=== PATIENT | male | born 1960 | race Caucasian/White ===

== ENCOUNTER 2020-07-19 22:16 | Emergency (ER) | payer BC ==
[2020-07-19] MEDS ORDERED: HYDROmorphone 1 MG/ML Syringe IM ONE (22:53)
--- NOTE | 2020-07-19 23:02 | EDM.PDOC ---
ED HPI GENERAL MEDICAL PROBLEM - General Chief Complaint: Lower Extremity Injury/Pain Stated Complaint: PAIN IN LEFT KNEE AFTER SURG YESTURDAY Time Seen by Provider: 07/19/20 22:48 Source of Information: Reports: Patient, Old Records History Limitations: Reports: No Limitations - History of Present Illness INITIAL COMMENTS - FREE TEXT/NARRATIVE: Marvin is a 60-year-old male presenting to the ED for left knee pain. Patient underwent of left knee hemiarthroplasty yesterday at [facility] by Edison Schilling. Patient has been following instructions from orthopedics after numerous phone calls to try to get his pain under control. He has been taking his hydrocodone every 4 hours as prescribed. Has been using ice and heat. He has been elevating it. Despite these measures he has not been able to get his pain under control prompting him to come to the ER tonight. Left Knee Pain Score (Numeric/FACES): 7 - Related Data Allergies Allergy/AdvReac Type Severity Reaction Status Date / Time meclizine Allergy Itching Verified 07/19/20 22:32 Home Meds: Home Meds Acetaminophen/HYDROcodone [Holt 325-10 MG] 1 tab PO Q4H PRN 07/19/20 [History] Aspirin [Aspirin EC] 325 mg PO BID 07/19/20 [History] Pantoprazole Sodium [Protonix] 20 mg PO DAILY 07/19/20 [History] Sennosides/Docusate Sodium [Senna-S 8.6-50 mg Tablet] 2 tab PO BID 07/19/20 [History] hydroCHLOROthiazide [Hydrochlorothiazide] 25 mg PO DAILY 07/19/20 [History] Past Medical History HEENT History: Reports: Impaired Vision, Sinusitis Cardiovascular History: Reports: Hypertension Gastrointestinal History: Reports: Chronic Diarrhea Genitourinary History: Reports: Renal Calculus Musculoskeletal History: Reports: Arthritis - Infectious Disease History Infectious Disease History: Reports: Chicken Pox, Mumps - Past Surgical History GI Surgical History: Reports: Colonoscopy, Hernia Repair/Other Male Surgical History: Reports: Kidney Stone Extraction Musculoskeletal Surgical History: Reports: Knee Replacement Social & Family History - Tobacco Use Tobacco Use Status *Q: Current Every Day Tobacco User Years of Tobacco use: 35 Packs/Tins Daily: 1 - Alcohol Use Date of Last Drink: 07/13/20 - Recreational Drug Use Recreational Drug Use: Yes Drug Use in Last 12 Months: Yes Recreational Drug Type: Reports: Marijuana/Hashish Review of Systems - Review of Systems Review Of Systems: See Below Constitutional: Reports: Diaphoresis (Episodes of diaphoresis when pain increases.) Eyes: Reports: No Symptoms Ears: Reports: No Symptoms Nose: Reports: No Symptoms Mouth/Throat: Reports: No Symptoms Respiratory: Reports: No Symptoms Cardiovascular: Reports: No Symptoms GI/Abdominal: Reports: No Symptoms Genitourinary: Reports: No Symptoms Musculoskeletal: Reports: Joint Pain (Left knee pain radiated up into the hip and down to the ankle.) Skin: Reports: Bruising (Postoperative bruising), Wound (Surgical wound looks clean, dry and intact). Denies: Erythema Neurological: Reports: No Symptoms Psychiatric: Reports: No Symptoms ED EXAM, GENERAL - Physical Exam Exam: See Below Exam Limited By: No Limitations General Appearance: Alert, Anxious, Moderate Distress Eye Exam: Bilateral Eye: EOMI, PERRL Head: Atraumatic, Normocephalic Neck: Normal Inspection, Supple Respiratory/Chest: No Respiratory Distress, Lungs Clear Cardiovascular: Normal Peripheral Pulses, Regular Rate, Rhythm Back Exam: Normal Inspection Extremities: Joint Swelling (Postoperative joint swelling. The joint is not hot or red but is swollen. There is ecchymosis seen above and below the joint.), Leg Pain (Leg pain referred from the knee), Other (Knee pain radiating up into the left hip). No: Daniel's Sign, Increased Warmth, Redness Neurological: Alert, Oriented, Normal Cognition, No Motor/Sensory Deficits Psychiatric: Normal Affect, Anxious Skin Exam: Warm, Dry, Intact, Normal Color, No Rash Lymphatic: No Adenopathy Course - Vital Signs Last Recorded V/S: Last Vital Signs Temp 36.2 C 07/19/20 22:38 Pulse 87 07/19/20 22:38 Resp 24 H 07/19/20 22:38 BP 128/89 07/19/20 22:38 Pulse Ox 94 L 07/19/20 22:38 - Orders/Labs/Meds Meds: Medications Discontinued Medications Generic Name Dose Route Start Last Admin Trade Name Freq PRN Reason Stop Dose Admin Hydromorphone HCl 1 mg 07/19/20 22:53 07/19/20 23:00 Hydromorphone 1 Mg/Ml Syringe IM 07/19/20 22:54 1 mg ONETIME ONE Administration - Re-Assessments/Exams Free Text/Narrative Re-Assessment/Exam: 07/19/20 23:29 the patient was given Dilaudid 1 mg IM for postoperative left knee pain. He has had improvement in getting a hold of his pain control. I will discharge him with a small amount of Percocet. He should follow-up in the morning with his orthopedist to discuss his pain management. Indications to return to the ED were discussed. Departure - Departure Time of Disposition: 23:29 Disposition: Home, Self-Care 01 Clinical Impression: Postoperative pain of left knee - Discharge Information Instructions: Pain Relief Before and After Surgery, Pain Medicine Instructions, [id number] Referrals: Ruth Ann Slade PA-C [Primary Care Provider] - Forms: ED Department Discharge Care Plan Goals: I have provided you with a small amount of Percocet to get you through the night and early day tomorrow. Please contact your orthopedic surgeon to discuss better pain management. Sepsis Event Note (ED) - Evaluation Sepsis Screening Result: No Definite Risk - Focused Exam Vital Signs: Vital Signs Temp Pulse Resp BP Pulse Ox 07/19/20 22:38 36.2 C 87 24 H 128/89 94 L 07/19/20 22:30 36.2 C 87 24 H 128/89 94 L - Problem List & Annotations (1) Postoperative pain of left knee SNOMED Code(s): 7628096507 Code(s): G89.18 - OTHER ACUTE POSTPROCEDURAL PAIN; M25.562 - PAIN IN LEFT KNEE Status: Acute Priority: Medium Current Visit: Yes - Problem List Review Problem List Initiated/Reviewed/Updated: Yes
== END 2020-07-19 23:46 | disposition home or self-care (01) ==
LOC: JP.ED 22:16
DX: G89.18 Other acute postprocedural pain (principal); M25.562 Pain in left knee; M19.90 Unspecified osteoarthritis, unspecified site; I10 Essential (primary) hypertension; Z88.8 Allergy status to other drugs, medicaments and biological substances; Z79.82 Long term (current) use of aspirin; Z79.899 Other long term (current) drug therapy; Z72.0 Tobacco use
CPT/HCPCS: 96372; 99283; J1170